=== PATIENT | female | born 1990 | race Caucasian/White ===

== ENCOUNTER 2019-10-30 13:09 | Emergency (ER) | payer SELFPAY ==
[2019-10-30] MEDS ORDERED: Sulfameth/Trimethoprim DS 800-160mg TAB ONE (13:40)
[2019-10-30] MEDS ORDERED: Ibuprofen 800 MG TAB ONE (13:40)
== END 2019-10-30 13:45 | disposition home or self-care (01) ==
LOC: MADERS 13:09
DX: L03.114 Cellulitis of left upper limb (principal)
CPT/HCPCS: 99283